=== PATIENT | male | born 1970 | race African-American/Black ===

== ENCOUNTER 2017-08-29 16:21 | Outpatient (CLI) | payer BC | END 2017-08-29 16:22 | disposition home or self-care (01) | LOC: BICRAD 16:21 | PROVIDERS: ATTEND Family Medicine | DX: S29.012A Strain of muscle and tendon of back wall of thorax, initial encounter (principal) | CPT/HCPCS: 71046 ==

== ENCOUNTER 2018-03-23 15:58 | Outpatient (CLI) | payer BC | END 2018-03-23 15:59 | disposition home or self-care (01) | LOC: BICRAD 15:58 | PROVIDERS: ATTEND Family Medicine | DX: M25.559 Pain in unspecified hip (principal) ==

== ENCOUNTER 2018-05-05 08:16 | Outpatient (CLI) | payer BC ==
--- NOTE | 2018-05-05 10:36 | MRI ---
MRI LUMBAR SPINE WITHOUT CONTRAST: Date: 05/05/18 COMPARISON: None. HISTORY: Low back pain and right leg sciatica for 5 months. TECHNIQUE: Multiplanar, multisequence MR images were obtained of the lumbar spine without contrast. FINDINGS: The vertebral bodies and intervertebral discs demonstrate normal height and alignment without fractur e or subluxation. The conus medullaris terminates normally at T12. There are tiny foci of high T2 sig nal in the left kidney which likely represent small cysts. The other prevertebral and paraspinal soft tissues are unremarkable. T12-L1: Unremarkable. L1-2: Unremarkable. L2-3: Unremarkable. L3-4: Unremarkable. L4-5: A small generalized concentric disc bulge is seen. Mild bilateral posterior facet arthrosis. No centr al canal stenosis. No neural foraminal stenosis. L5-S1: A small generalized concentric disc bulge is associated with a superimposed central protrusion. This appears to impress upon the right S1 nerve root. No posterior facet arthrosis. No central canal steno sis. Mild to moderate bilateral neural foraminal stenosis. IMPRESSION: Degenerative changes of the lower lumbosacral spine as above. POS: [facility]
== END 2018-05-05 08:17 | disposition home or self-care (01) ==
LOC: TBSIIMAG 08:16
PROVIDERS: ATTEND Chiropractor
DX: M54.5 Low back pain (principal); M47.27 Other spondylosis with radiculopathy, lumbosacral region
CPT/HCPCS: 72148

== ENCOUNTER 2018-06-15 09:53 | Outpatient (CLI) | payer BC ==
--- NOTE | 2018-06-15 11:21 | RAD ---
LUMBAR SPINE 3 VIEWS FLEXION AND EXTENSION: HISTORY: Sciatic nerve pain. COMPARISON: MRI lumbar spine 05/05/2018. FINDINGS: There is straightening of the lumbar spine. Mild narrowing of L5-S1 disk space. No listhesis. No t ranslation with flexion or extension. IMPRESSION: Mild degenerative changes centered at L5-S1 without subluxation or translation with flexion or extens ion. POS: [facility]
== END 2018-06-15 09:54 | disposition home or self-care (01) ==
LOC: TBSIIMAG 09:53
PROVIDERS: ATTEND Neurological Surgery
DX: M54.16 Radiculopathy, lumbar region (principal); M47.897 Other spondylosis, lumbosacral region
CPT/HCPCS: 72100

== ENCOUNTER 2018-07-04 06:49 | Day surgery (SDC) | payer BC ==
[2018-07-03 13:30] VITALS: BMI 26.4
--- NOTE | 2018-07-03 15:37 | HP ---
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 He states that, over the last 6 months, it neal s gotten progressively worse. The pain radiates from gluteal area down to the back of his thigh to t he posterior calf on the lateral aspect of the foot and the smallest two toes. It is difficult to st and and walk. Although he used to bend over for some relief, now even that maneuver is not working. He has been through injection therapy. He takes oral analgesics with increasing in strength. He do es stretching and strengthening exercises, but none of these seem to make the pain any better. He neal s been having difficulty working as a truckdriver, because of the pain. He does not have any left le g symptoms. He does not have any symptoms in the big toe. He does not have foot drop. REVIEW OF SYSTEMS: A 10-point review of systems has been completed and is negative other than stated above in the HPI. MEDICATIONS: Clarence and Lyrica. ALLERGIES: PENICILLIN, CODEINE, and MEDROL. PAST MEDICAL HISTORY: Tobacco use. PAST SURGICAL HISTORY: None. PAST HOSPITALIZATIONS: None. FAMILY HISTORY: His father has diabetes, stroke, and cancer. Mother is alive and healthy. He has gianna harvey, who are alive and healthy. SOCIAL HISTORY: Mr. James uses tobacco. He denies any other illicit drug use. He drinks alcohol socially. He lives with his . 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 PHYSICAL EXAMINATION: GENERAL: Mr. James is 5 feet 9 inches, 169 pounds. NEUROLOGIC: Cranial nerves II-XII are intact. Cerebellar exam shows that he can perform alternating rapid motion repeatedly without dysmetria. There is no truncal ataxia. Motor exam shows full stren gth in the upper two extremities and the left lower extremity . There is good strength in the i liopsoas, quadriceps, anterior tibialis, EHL, and hamstrings. If there is any gastrocnemius weakness on the right side, it is minimal. However, there is toe flexor weakness. Sensory exam reveals decr eased sensation in S1 distribution down the right leg all the way to the lateral aspect of the foot a reas. Decrease in ankle jerk on the right compared to the left. The toes are downgoing. There is n o Babinskis. There is no clonus. RESPIRATIONS: Normal work of breathing on room air. IMAGING: An MRI image of the lumbar spine shows moderate lateral recess disease at L4-L5 with a good -sized disk herniation at L5-S1 on the right and directly beneath the S1 nerve root causing stretchin g and compression of the nerves. 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 Dr. Luisito kumar has offered surgery, because of failure of injections and alternative therapies. He will need to quit smoking prior to surgery. We have discussed indications, risks, benefits, and alternatives, and expected outcomes of surgery. The risks discussed included, but were not limited to bleeding, in fection, CSF leak, nerve root damage, cauda equina injury, paralysis, incontinence, wheelchair depend ence, major blood vessel injury, cardiopulmonary complications of anesthesia and . Long-term co mplications included, but were not limited to the need for further surgery and spinal instability. Rey bhatia states that he understands the risks and is willing to move forward to surgery.
[2018-07-04] MEDS ORDERED: CEFAZOLIN 2 GM/50 ML BAG ONE (07:59)
[2018-07-04] MEDS ORDERED: Clindamycin/D5W 900 mg/50 ml Premix Bag ONE ×2 (07:59→15:24)
[2018-07-04] MEDS ORDERED: Levofloxacin 500 mg/D5W 100 ml Premix Bag ONE (07:59)
[2018-07-04] MEDS ORDERED: Midazolam HCl 2 mg/2 ml Vial ONE (08:01)
[2018-07-04] MEDS ORDERED: Thrombin 5000 UNITS/5 ML VIAL ONE (09:25)
[2018-07-04] MEDS ORDERED: Bupivacaine HCl 0.5%/Epinephrine 1:200,000/PF 30 ml Vial ONE (09:25)
[2018-07-04] MEDS ORDERED: Sodium Chloride 0.9% 10 ML ONE (09:25)
[2018-07-04] MEDS ORDERED: Fentanyl 250 MCG/5 ML VIAL ONE (09:32)
--- NOTE | 2018-07-04 11:39 | OP ---
DATE OF SURGERY: 07/04/2018 SURGEON: Bob Huynh M.D. MITOCHONDRIAL DISORDERS COUNSELOR: Courtney Brown PA-C. PREOPERATIVE INDICATION: Treat pain, prevent neurological deterioration. PREOPERATIVE DIAGNOSES: Intervertebral disk herniation right L5-S1 with right S1 radiculopathy. POSTOPERATIVE DIAGNOSES: Intervertebral disk herniation right L5-S1 with right S1 radiculopathy. OPERATIVE PROCEDURE: Right-sided partial hemilaminectomy, medial facetectomy, and microdiskectomy, o perating microscope. PREOPERATIVE MEDICATIONS: Clindamycin 900 mg IV, Levaquin 500 mg IV. DRAIN NUMBER: Zero. DRAIN TYPE: None. OPERATIVE DICTATION: The patient was brought to the operating room. General endotracheal anesthesia was induced. The patient was positioned prone on gel-filled chest rolls. A lateral fluoro radiogra ph was used to plan our incision. The lumbar skin was sterilely prepped and draped. We opened our i ncision with a 10-blade knife and controlled bleeding with bipolar and monopolar cautery. We used mo nopolar cautery to dissect through subcutaneous tissues to thoracodorsal fascia. We incised the fasc ia to the right of midline and reflected the paraspinal muscles off the spinous process and lamina of L5 and S1 on the right side. A self-retaining retractor was placed and a lateral fluoro radiograph confirmed the levels upon which we were operating. Using a Steely and Kerrison rongeurs, we fashione d a partial hemilaminectomy and medial facetectomy. We removed yellow ligament and then brought the operating microscope into the field. Under microscopic navigation and using microsurgical techniques, we carefully removed the remainder o f the yellow ligament. We performed a medial facetectomy to identify the S1 nerve root. In the axil la of the S1 nerve root was a disk protrusion that did not allow us to retract the nerve root mediall y. We retracted the common thecal sac and saw the disk herniation quite nicely. We gently coagulate d the surface, incised it, and removed herniated disk fragments from epidural space. This free d up the L5 nerve root nicely. We then could mobilize it medially. We removed more disk fragments f rom the same opening under the ventral aspect of the S1 nerve root. Multiple fragments were removed and by the time the diskectomy was complete, the S1 nerve root was freely mobile across the interspac e and out the foramen. We probed through the opening and did not find any more loose fragments of di sk in the disk space. We irrigated copious with bacitracin irrigation. We infused local anesthetic in the paraspinal muscles. We closed the wound in anatomic layers and applied a sterile dressing. T his was a clean case and no contamination.
[2018-07-04] MEDS ORDERED: Fentanyl 100 MCG/2 ML VIAL ONE (11:59)
[2018-07-04] MEDS ORDERED: Tamsulosin HCl 0.4 MG CAP ONE (12:37)
[2018-07-04] MEDS ORDERED: Dexamethasone 20 MG/5 ML VIAL ONE (15:56)
[2018-07-04] MEDS ORDERED: Glycopyrrolate 0.2 MG/ML 5 ML SYRINGE ONE (15:56)
[2018-07-04] MEDS ORDERED: Ondansetron PF 4 MG/2 ML Vial ONE (15:56)
[2018-07-04] MEDS ORDERED: Lidocaine 1% PF 5 ML VIAL ONE (15:56)
[2018-07-04] MEDS ORDERED: PHENYLEPHRINE-NS 100 MCG/ML 10 ML SYRINGE ONE (15:56)
[2018-07-04] MEDS ORDERED: PROVENTIL INHALER 6.7 G (200 INHALATIONS) ONE (15:56)
[2018-07-04] MEDS ORDERED: PROPOFOL 200 MG/20 ML VIAL ONE (15:56)
[2018-07-04] MEDS ORDERED: Ketorolac Tromethamine 30 MG/ML VIAL ONE (15:56)
== END 2018-07-04 15:45 | disposition home or self-care (01) ==
LOC: SDC 06:49
PROVIDERS: ATTEND Neurological Surgery
PROC: 01NB0ZZ Release Lumbar Nerve, Open Approach (ICD-10-PCS; principal; 2018-07-04)
DX: M51.17 Intervertebral disc disorders with radiculopathy, lumbosacral region (principal); F17.200 Nicotine dependence, unspecified, uncomplicated; Z88.0 Allergy status to penicillin; Z88.5 Allergy status to narcotic agent
CPT/HCPCS: 76001; 96374; J0670; J1100; J1885; J1956; J2001; J2250; J2405; J2704; J3010; J3370; J3490